=== PATIENT | female | born 1990 | race Two or more races ===

== ENCOUNTER 2019-06-02 12:43 | Emergency (ER) | payer SELFPAY ==
[2019-06-02 12:49] VITALS: BP 116/75; PULSE 99; TEMP 97.8; BMI 23.8
--- NOTE | 2019-06-02 12:49 | PDOC ---
Rapid Medical Evaluation Time Seen by Provider: 06/02/19 12:45 Medical Evaluation: Allergies Allergy/AdvReac Type Severity Reaction Status Date / Time No Known Allergies Allergy Verified 12/01/14 17:01 06/02/19 12:45 CC: lower back pain s/p feet first fall down 9 wooden steps. Denies head trauma/ LOC. PE: Tenderness to l/s. No deformity, crepitus, step-offs noted. Orders: urine, xray The patient will proceed to the ER for continued evaluation. Discharge Disposition - Diagnosis Back pain - Referrals - Patient Instructions - Post Discharge Activity
[2019-06-02] MEDS ORDERED: KETOROLAC TROMETHAMINE 60 MG/2 ML VIAL IM ONE (13:06)
--- NOTE | 2019-06-02 13:17 | PDOC ---
History of Present Illness - General Chief Complaint: Injury Stated Complaint: FALL/BACK PAIN Time Seen by Provider: 06/02/19 12:45 History Source: Patient - History of Present Illness Occurred: reports: yesterday Pain Location: reports: back Method of Injury: Yes: fall Past History - Past Medical History Allergies/Adverse Reactions: Allergies Allergy/AdvReac Type Severity Reaction Status Date / Time No Known Allergies Allergy Verified 06/02/19 12:49 Home Medications: Ambulatory Orders Acetaminophen [Tylenol -] 1,000 mg PO Q6H #30 tablet 06/02/19 Asthma: No Cancer: No Cardiac Disorders: No COPD: No Diabetes: No HTN: No Seizures: No Thyroid Disease: No - Psycho Social/Smoking Cessation Hx Smoking History: Never smoked Hx Alcohol Use: No Drug/Substance Use Hx: No Substance Use Type: None Hx Substance Use Treatment: No Review of Systems - Review of Systems Musculoskeletal: Yes: Back Pain Neurological: No: Numbness, Tingling, Weakness *Physical Exam - Vital Signs Last Vital Signs Temp Pulse Resp BP Pulse Ox 97.8 F 99 H 18 116/75 100 06/02/19 12:44 06/02/19 12:44 06/02/19 12:44 06/02/19 12:44 06/02/19 12:44 - Physical Exam General Appearance: Yes: Appropriately Dressed, Mild Distress HEENT: positive: Normal Voice Neck: positive: Supple Respiratory/Chest: negative: Respiratory Distress Extremity: positive: Other (contusion w/ ttp to mid lower back) Integumentary: positive: Dry, Warm Neurologic: positive: Fully Oriented, Alert, Normal Mood/Affect Medical Decision Making - Medical Decision Making 06/02/19 14:56 28 yo F, here w/ severe mid lower back pain after "tumbling" down steps onto back yesterday. No sensory changes, LE weakness, saddle anes or B/B incontinence. Able to ambulate. Took motrin w/ no relief see exam Lower back contusion XR neg for fx Dose of toradol here -Dc w/ pain control -PMD f/u as needed Discharge - Discharge Information Problems reviewed: Yes Clinical Impression/Diagnosis: Back contusion Qualifiers: Encounter type: initial encounter Laterality: unspecified laterality Qualified Code(s): S20.229A - Contusion of unspecified back wall of thorax, initial encounter Condition: Improved Disposition: HOME - Additional Discharge Information Prescriptions: Acetaminophen [Tylenol -] 1,000 mg PO Q6H #30 tablet - Follow up/Referral - Patient Discharge Instructions Patient Printed Discharge Instructions: Contusion Additional Instructions: Your x-ray did not show any fracture. You sustained a bruise to your back which will heal in time. Take Motrin or Tylenol for pain as needed If pain persists please follow-up with your doctor - Post Discharge Activity Work/Back to School Note: Back to Work
[2019-06-02] MEDS ORDERED: KETOROLAC TROMETHAMINE 60 MG/2 ML VIAL ONE (13:34)
== END 2019-06-02 15:00 | disposition home or self-care (01) ==
LOC: JERFT 12:43
PROC: 3E0233Z Introduction of Anti-inflammatory into Muscle, Percutaneous Approach (ICD-10-PCS; principal; 2019-06-02)
DX: S20.229A Contusion of unspecified back wall of thorax, initial encounter (principal); W10.8XXA Fall (on) (from) other stairs and steps, initial encounter; Y93.89 Activity, other specified; Y92.038 Other place in apartment as the place of occurrence of the external cause; Y99.8 Other external cause status
CPT/HCPCS: 72100-TC-FY; 72220-TC-FY; 84703; 99282-25